=== PATIENT | female | born 1945 | race Caucasian/White ===

== ENCOUNTER 2016-05-23 10:45 | Emergency (ER) | payer MEDICARE, BC ==
[2014-11-09 21:50] VITALS: BMI 35.7
[~2016-05-23 10:45] MED LIST: ARICEPT5 MG PO; CELEXA20 MG PO; HYDROCHLOROTH12.5 M1 PO; NORVASC10 MG PO; PRILOSEC20 MG PO; PRINIVIL20 MG PO; PYRIDOXINE HCL100 MG PO; TOPROL XL25 MG PO; VITAMIN B-121000 MCG PO; VITAMIN D31000 UNI2 PO
== END 2016-05-23 12:40 | disposition home or self-care (01) ==
LOC: D.ER 10:45
DX: S00.12XA Contusion of left eyelid and periocular area, initial encounter (principal); W05.0XXA Fall from non-moving wheelchair, initial encounter; Y93.89 Activity, other specified; Y92.129 Unspecified place in nursing home as the place of occurrence of the external cause

== ENCOUNTER → 2016-06-09 14:21 | Outpatient (CLI) | payer MEDICARE, BC ==
[2014-11-09 21:50] VITALS: BMI 35.7
== END | disposition home or self-care (01) ==
LOC: D.CT 06-02 15:00
DX: H53.9 Unspecified visual disturbance (principal)

== ENCOUNTER → 2019-02-24 12:54 | Outpatient (CLI) | payer MEDICARE, BC ==
[2014-11-09 21:50] VITALS: BMI 35.7
== END | disposition home or self-care (01) ==
LOC: D.US 12:54
PROVIDERS: ATTEND Family Medicine
DX: E04.1 Nontoxic single thyroid nodule (principal)

== ENCOUNTER → 2019-03-11 07:26 | Outpatient (CLI) | payer MEDICARE, BC ==
[2014-11-09 21:50] VITALS: BMI 35.7
== END | disposition home or self-care (01) ==
LOC: D.US 03-07 14:00
PROVIDERS: ATTEND Family Medicine
DX: E04.1 Nontoxic single thyroid nodule (principal)